=== PATIENT | female | born 1990 | race Caucasian/White ===

== ENCOUNTER 2020-05-11 10:52 | Emergency (ER) | payer SELFPAY ==
[~2020-05-11] VITALS: Ht 157.4 cm; Wt 63.0 kg
--- NOTE | 2020-05-11 11:30 | ED GU-Female ---
General Chief Complaint: Female Reproductive Stated Complaint: SPOTTING Source: patient Exam Limitations: no limitations (ESDRAS CHEN,) History of Present Illness Date Seen by Provider: May 11, 2020 Time Seen by Provider: 11:15 Initial Comments Ms. Hayes is a 29-year-old female who is a G1 who presented to the ED for spotting x5 days with occasional clotting. She has seen by Dr. Salas at [facility] and recently had a pap smear at that visit. LMP 03/30/2020 by estimate. Denies abdominal pain but does admit to vaginal discharge. Denies fevers, chills. No confirmation by ultrasound as of yet. She came to the ED for cramping as this was concerning to her. Timing/Duration: week Severity/Quality: mild Sexual [place] History: less than 2 months ago Associated Symptoms: No abdominal pain, No fever/chills (ESDRAS AKERS,) Allergies and Home Medications Allergies Coded Allergies: nickel (Verified Allergy, Unknown, 05/11/20) Patient Home Medication List Home Medication List Reviewed: Yes (ESDRAS CHEN,) Home Medication List Reviewed: Yes (AQUILINO CAMPBELL MD) Review of Systems Review of Systems Constitutional: No chills, No fever EENTM: No blurred vision Respiratory: No cough, No short of breath Cardiovascular: No chest pain, No palpitations Gastrointestinal: nausea Genitourinary: denies dysuria, denies frequency Musculoskeletal: no symptoms reported Skin: no symptoms reported Psychiatric/Neurological: No Symptoms Reported Endocrine: No Symptoms Reported Hematologic/Lymphatic: No Symptoms Reported (ESDRAS CHEN,) Cardiovascular: no symptoms reported Gastrointestinal: No abdominal pain, No vomiting Genitourinary: discharge; denies dysuria, denies frequency : Yes Skin: No change in color, No lesions (AQUILINO CAMPBELL MD) Past Njmmfnj-Kperqk-Vrwphs Hx Past Med/Social Hx: Reviewed Nursing Past Med/Soc Hx (AQUILINO CAMPBELL MD) Patient Social History Alcohol Use: Denies Use Smoking Status: Never a Smoker (ESDRAS CHEN,) Past Medical History Surgeries: No Respiratory: No Cardiac: No Neurological: No : Yes Hx : 1 Hx Para: 0 Reproductive Disorders: No Genitourinary: No Gastrointestinal: No Musculoskeletal: No Endocrine: No Cancer: No Psychosocial: No (ESDRAS CHEN,) Family Medical History Reviewed Nursing Family Hx (AQUILINO CAMPBELL MD) No Pertinent Family Hx (ESDRAS CHEN,) Physical Exam Vital Signs Vital Signs - First Documented 05/11/20 10:52 Temp 36.5 Pulse 89 Resp 16 B/P (MAP) 127/84 (98) Pulse Ox 100 O2 Delivery Room Air (AQUILINO CAMPBELL MD) Vital Signs Capillary Refill : (ESDRAS CHEN,) Height, Weight, BMI Height: '" Weight: lbs. oz. kg; BMI Method: General Appearance: WD/WN, no apparent distress HEENT: PERRL/EOMI Neck: supple, normal inspection Cardiovascular: regular rate, rhythm, no murmur Respiratory: lungs clear, normal breath sounds Gastrointestinal: normal bowel sounds, non tender, soft Extremities: normal range of motion, no pedal edema Neurologic/Psychiatric: alert, oriented x 3 Skin: normal color, warm/dry (ESDRAS CHEN,) General Appearance: WD/WN, no apparent distress Cardiovascular: regular rate, rhythm, no murmur Respiratory: lungs clear, normal breath sounds Gastrointestinal: non tender, soft Neurologic/Psychiatric: alert, oriented x 3 Skin: normal color, warm/dry (AQUILINO CAMPBELL MD) Progress/Results/Core Measures Suspected Sepsis SIRS Temperature: Pulse: Respiratory Rate: Blood Pressure / Mean: (ESDRAS CHEN,) Results/Orders Lab Results Laboratory Tests Test 05/11/20 11:27 Range/Units Human Chorionic Gonadotropin, Quant 61 H <5 MIU/ML (AQUILINO CAMPBELL MD) Micro Results Microbiology 05/11/20 Wet Prep - Final, Complete (AQUILINO CAMPBELL MD) My Orders Orders - AQUILINO CAMPBELL MD Hcg,Quantitative (05/11/20 11:20) Abo Rh Type (05/11/20 11:20) Wet Prep (05/11/20 11:20) Ua Culture If Indicated (05/11/20 11:20) Us Ob Transvaginal 10094 (05/11/20 11:32) (AQUILINO CAMPBELL MD) Vital Signs/I&O 05/11/20 10:52 Temp 36.5 Pulse 89 Resp 16 B/P (MAP) 127/84 (98) Pulse Ox 100 O2 Delivery Room Air (AQUILINO CAMPBELL MD) Vital Signs/I&O Capillary Refill : (ESDRAS CHEN,) Progress Note : Time: 11:29 Progress Note Quant HCG, wet prep, ABO Rh, ultrasound ordered. Discussed case with Dr. Guthrie, on-call for [facility], for OB intake lab results. Will monitor and progress with care as results return. (ESDRAS CHEN,) Progress Note : Progress Note I have seen and evaluated the patient and agree with above except as indicated. I have directed the plan of care. Patient is here with spotting. She has had test which verified although she has not had ultrasound to verify intrauterine . Last menstrual period was in March. Last sexual activity was a few weeks ago prior to . Its about the same time that she took a test. She is unsure of when she actually became . Does have some nausea and reports increased emotional feelings. States that she is having some small clots today. Last sexual activity after was yesterday. Complains of watery discharge. Denies fever chills. Evaluation as above. Plan for quantitative hCG, wet prep, ABO Rh and ultrasound. I did talk with Dr. Guthrie at [facility] and patient has had orders for labs to be drawn but she has not presented for that yet and they do not have her blood type either. Monitor patient. 1220: Preliminary ultrasound results show no obvious pole within the uterus or outside the uterus. Quantitative hCG is 61 which is much lower than I would have expected indicating a likely miscarriage although may be early for dates. She has appointment with Dr. Salas next Thursday on 05/16/2020. Patient will keep that appointment and can have retesting done at that point. I will send a copy of the chart to Dr. Salas. Patient is pending ABO Rh but states that she gives blood and she is or is a positive. We will call her and send her to [place] if her blood type is negative. Patient agrees to presenting there for RhoGam if needed. Discharged home with return precautions. Patient verbalized understanding instructions and agreement with plan. Patient is positive for bacterial vaginosis and will be treated with metronidazole. (AQUILINO CAMPBELL MD) Diagnostic Imaging Diagonstic Imaging: Ultrasound Plain Films/CT/US/NM/MRI: pelvis Comments Preliminary read shows no obvious pole and no obvious ectopic per dynamics ax technical architect. (AQUILINO CAMPBELL MD) Departure Impression Primary Impression: Threatened miscarriage in early Additional Impression: Bacterial vaginosis in Disposition: 01 HOME, SELF-CARE Condition: Stable Departure-Patient Inst. Decision time for Depature: 12:24 (AQUILINO CAMPBELL MD) Patient Instructions: Threatened Miscarriage (DC), Bacterial Vaginosis (DC) Add. Discharge Instructions: All discharge instructions reviewed with patient and/or family. Voiced understanding. Follow-up with Dr. Salas on 05/16/2020 as scheduled. You will need repeat labs at that time. You may have increased bleeding if this is a miscarriage. Return if bleeding exceeds 2 pads per hour for more than 2 hours, markedly increasing pain, weakness or other concerns as needed. You may take Tylenol/acetaminophen 1000 mg every 6-8 hours as needed for pain. Drink plenty of fluids. Take medications as directed. Scripts Metronidazole (Metronidazole) 500 Mg Tablet 500 MG PO BID, #14 TAB 0 Refills Prov: AQUILINO CAMPBELL MD 05/11/20 Copy Copies To 1: GAYLE SALAS MD-ESDRAS FISHER, May 11, 2020 11:30 AQUILINO CAMPBELL MD May 11, 2020 11:46
[2020-05-11] MEDS ORDERED: METR-145 PO (12:26)
[2020-05-11 12:50] VITALS: BP 127/84
--- NOTE | 2020-05-11 13:37 | Diagnostic Imaging Report ---
INDICATION: Vaginal bleeding. TECHNIQUE: Transvaginal pelvic sonography was performed. In addition, limited pelvic Doppler was performed. FINDINGS: Uterus measures 7.1 x 4.5 x 3.2 cm. Endometrium is 4 mm in thickness. No myometrial mass is detected. Right ovary measures 2.8 x 2.9 x 2.0 cm and left ovary measures 3.2 x 3.3 x 1.7 cm. There is blood flow to both ovaries. No adnexal mass or free fluid is detected. IMPRESSION: Unremarkable transvaginal pelvic ultrasound. Dictated by: Dictated on workstation # [id number]
== END 2020-05-11 12:50 | disposition home or self-care (01) ==
LOC: ER FS 10:54
DX: O20.0 Threatened abortion (principal); N76.0 Acute vaginitis; Z88.8 Allergy status to other drugs, medicaments and biological substances; Z3A.01 Less than 8 weeks gestation of pregnancy
CPT/HCPCS: 36415; 76817; 84702; 86900; 86901; 87210

== ENCOUNTER 2021-11-28 18:48 | Emergency (ER) | payer SELFPAY ==
[~2021-11-28 18:48] MED LIST: METR-145 PO
[2021-11-28] MEDS ORDERED: RX-TRIMETH/SULFA. 160-800 MG (BACTRIM DS) TAB PPK#2 PO STA (19:55)
[2021-11-28] MEDS ORDERED: RX-MUPIROCIN (BACTROBAN) 2% OINT 22 GM TUBE TOP STA (19:55)
--- NOTE | 2021-11-28 19:57 | ED Integumentary General ---
General Chief Complaint: Bite-Animal/Human/Insect Stated Complaint: POSSIBLE SPIDER BITE,PAIN,OOZING FLUID Nursing Triage Note: PT ARRIVAL TO ER VIA PRIVATE VEHICLE WITH COMPLAINT OF POSSIBLE SPIDER BITE TO BOTTOM OF LEFT BUTTOCKS. BITE WAS NOTICED 3 DAYS AGO, BUT PAIN AND DISCOMFORT STARTED TO WORSEN TODAY. PT STATES THAT CENTER IS BLACK, AND HAS BEEN DRAINING THICK, BLOODY, PUS LIKE FLUID WHEN SQUEEZED. PAIN AT A 8/10 WHEN STANDING. Source: patient History of Present Illness Date Seen by Provider: Nov 28, 2021 Time Seen by Provider: 19:30 Initial Comments PT ARRIVES VIA POV FROM HOME IN [place] C/O AREA OF PAIN, REDNESS AND SWELLING TO LEFT BUTTOCK, THAT BEGAN A PIMPLE TO THE AREA 3 DAYS AGO THOUGHT SHE MIGHT HAVE A "SPIDER BITE" BUT DID NOT SEE OR FEEL ANYTHING BITE HER STATES SHE HAS A HISTORY OF THE SAME TO OTHER PARTS OF HER BODY PT POKED/POPPED THE PIMPLE AREA AND HAS BEEN SQUEEZING THE AREA --HAS BEEN DRAINING THICK BLOODY PURULENT DRAINAGE. PT HAS BEEN USING PEROXIDE AND PRID ON THE AREA NO FEVER HAS NOT SOUGHT CARE UNTIL TONIGHT HAS NOT TAKEN ANYTHING FOR PAIN LAST TETANUS IS UNKNOWN DENIES ANY MEDICAL PROBLEMS PCP: [facility], DR. SALAS--HAS NOT BEEN THERE IN "AWHILE" Allergies and Home Medications Allergies Coded Allergies: nickel (Verified Allergy, Unknown, 05/11/20) Patient Home Medication List Home Medication List Reviewed: Yes Metronidazole (Metronidazole) 500 Mg Tablet, 500 MG PO BID Prescribed by: AQUILINO CAMPBELL on 05/11/20 1226 Sulfamethoxazole/Trimethoprim (Bactrim Ds Tablet) 1 Each Tablet, 1 EACH PO BID Prescribed by: NGHIA KAUR on 11/28/211999 Review of Systems Review of Systems Constitutional: no symptoms reported Respiratory: no symptoms reported Cardiovascular: no symptoms reported Gastrointestinal: no symptoms reported Genitourinary: no symptoms reported Musculoskeletal: no symptoms reported Skin: see HPI Psychiatric/Neurological: No Symptoms Reported Endocrine: No Symptoms Reported Hematologic/Lymphatic: No Symptoms Reported Past Zenyioj-Hfiogf-Haxvxc Hx Patient Social History Tobacco Use?: No Use of E-Cig and/or Vaping dev: No Substance use?: Yes Substance type: Marijuana Substance frequency: Couple times a week Alcohol Use?: No Pt feels they are or have been: No Immunizations Up To Date Influenza Vaccine Up-to-Date: No; Not Current Seasonal Allergies Seasonal Allergies: No Past Medical History Surgeries: No Respiratory: No Cardiac: No Neurological: No Reproductive Disorders: No Genitourinary: No Gastrointestinal: No Musculoskeletal: No Endocrine: No HEENT: No Cancer: No Psychosocial: No Integumentary: Yes (CELLULITIS/ABSCESSES) Blood Disorders: No Family Medical History No Pertinent Family Hx Physical Exam Vital Signs Vital Signs - First Documented 11/28/21 19:00 Temp 37.1 Pulse 95 Resp 18 B/P (MAP) 127/81 (96) Pulse Ox 100 O2 Delivery Room Air Capillary Refill : Less Than 3 Seconds General Appearance: WD/WN, no apparent distress Cardiovascular: regular rate, rhythm Respiratory: normal breath sounds Extremities: normal range of motion Neurologic/Psychiatric: no motor/sensory deficits, alert, normal mood/affect, oriented x 3 Skin: normal color, warm/dry, other (LEFT LATERAL BUTTOCK AREA WITH 8X10 CM AREA OF ERYTHEMA, WARMTH AND INDURATION AND TENDERNESS. CENTRAL OPENING DRAINING BLOODY, PURULENT MATERIAL. NO FLUCTUANCE. NO STREAKS. ) Progress/Results/Core Measures Results/Orders My Orders Orders - NGHIA KAUR DO Wound Culture (11/28/21 19:55) Clindamycin Injection (Cleocin Injection (11/28/21 20:00) Ketorolac Injection (Toradol Injection) (11/28/21 20:00) Rx-Trimeth/Sulfameth Ds Tab (Rx-Bactrim/ (11/28/21 19:55) Rx-Mupirocin 2% Oint (Rx-Bactroban) (11/28/21 19:55) Wound Dressing-Ed (11/28/21 19:55) Dipht,Pertuss(Acell),Tet Adult (Boostrix (11/28/21 20:00) Medications Given in ED Current Medications Medications Dose Ordered Sig/Gabby Route Start Time Stop Time Status Last Admin Dose Admin Diphtheria/ Tetanus/Acell Pertussis 0.5 ml ONCE ONCE IM 11/28/21 20:00 11/28/21 20:01 DC 11/28/21 20:18 0.5 ML Ketorolac Tromethamine 60 mg ONCE ONCE IM 11/28/21 20:00 11/28/21 20:01 DC 11/28/21 20:17 60 MG Vital Signs/I&O 11/28/21 11/28/21 19:00 20:24 Temp 37.1 36.5 Pulse 95 72 Resp 18 16 B/P (MAP) 127/81 (96) 118/79 Pulse Ox 100 100 O2 Delivery Room Air Room Air Blood Pressure Mean: 96 Progress Progress Note : Progress Note NO I&D REQUIRED AT THIS TIME, THE AREA IS ALREADY DRAINING ON IT'S OWN. Departure Impression Primary Impression: CELLULITIS OR ABSCESS OF LEFT BUTTOCK Additional Impression: Dbufyclyjj-fybfnngfd-fscifsc (DPT) vaccination administered at current visit Disposition: HOME, SELF-CARE Condition: Stable Departure-Patient Inst. Decision time for Depature: 19:58 Referrals: GAYLE SALAS MD (PCP/Family) Primary Care Physician Patient Instructions: Cellulitis (Skin Infection), Adult (DC), Methicillin- Resistant Staphylococcus aureus (MRSA) Add. Discharge Instructions: CLEAN WOUND TWICE A DAY WITH ANTIBACTERIAL SOAP AND WATER, APPLY ANTIBIOTIC OINTMENT AND FRESH DRESSING TO AREA MOIST HEAT TO AREA AT 20 MINUTE INTERVALS DO NOT SQUEEZE, PICK AT OR POKE THE AREA TYLENOL AND MOTRIN NEEDED FOR PAIN FOLLOW UP WITH [facility] IN 2 DAYS FOR RECHECK--CALL IN THE MORNING TO SCHEDULE APPOINTMENT All discharge instructions reviewed with patient and/or family. Voiced understanding. Scripts Sulfamethoxazole/Trimethoprim (Bactrim Ds Tablet) 1 Each Tablet 1 EACH PO BID, #20 TAB Prov: NGHIA KAUR DO 11/28/21 NGHIA KAUR DO Nov 28, 2021 19:57
[2021-11-28] MEDS ORDERED: SULF1TAB38 PO (20:00)
[2021-11-28] MEDS ORDERED: TETANUS,DIPTH,PERTUSS P/F (BOOSTRIX) 0.5 ML VIAL IM ONE (20:00)
[2021-11-28] MEDS ORDERED: KETOROLAC 60 MG/2 ML VIAL IM ONE (20:00)
[2021-11-28] MEDS ORDERED: CLINDAMYCIN 600 MG/4ML (CLEOCIN) VIAL IM ONE (20:00)
[2021-11-28 20:24] VITALS: BP 118/79
== END 2021-11-28 20:26 | disposition home or self-care (01) ==
LOC: EDUNIT# 18:48 → ER 18:51
DX: L02.31 Cutaneous abscess of buttock (principal); Z23 Encounter for immunization; Z28.310 Unvaccinated for COVID-19
CPT/HCPCS: 87070; 87077; 87186; 87205; 90471; 90715; 96372; 99284